=== PATIENT | male | born 1950 | race Caucasian/White ===

== ENCOUNTER → 2019-03-28 | Outpatient (CLI) | payer MEDICARE, OTHER ==
[~2019-03-28] MED LIST: ACET325; ACET500 PO; ASCO500 PO; ASPI81CH; Aspir 8181 MG PO; Aspirin EC81 MG PO; CALCA400CH PO; CALCA500CH; CALCIT950; CALCITRATE200 MG PO; CITA20 PO; Celexa40 MG PO; Citalopram HBr20 MG PO; Colace100 MG PO; Complex B-1001 EACH PO; ERGO50000; Ferosul325 MG PO; Flomax0.4 MG; GABA300; GABA600 PO; GLIP5; GLIP5ER PO; Glucophage1000 MG PO; Glucosamine H1500 MG PO; IBUP600 PO; MELO7.5; MSM Glucosamin1 EACH PO; Mobic15 MG PO; NABU750 PO; Natural Vita400 UNIT PO; Norco 5-325 Ta1 EACH PO; OXYACE5T PO; OXYC5 PO; PRAV20 PO; Prinivil10 MG; Prinivil10 MG PO; TOCO400; TOCO400 PO; TRAM50 PO; TUMS200 MG PO; VITAMIN B125000 MCG PO; VITAMIN C500 M1 PO; XARELTO10 MG PO; XARELTO20 MG PO
== END | disposition home or self-care (01) ==
LOC: PLD 11:50 → LAB SHORT 11:50
DX: C44.622 Squamous cell carcinoma of skin of right upper limb, including shoulder (principal); D04.22 Carcinoma in situ of skin of left ear and external auricular canal
CPT/HCPCS: 88305

== ENCOUNTER → 2019-04-24 | Outpatient (CLI) | payer MEDICARE, OTHER | END | disposition home or self-care (01) | LOC: LAB SHORT 14:11 → PLD 14:11 | DX: C44.622 Squamous cell carcinoma of skin of right upper limb, including shoulder (principal) | CPT/HCPCS: 88305 ==

== ENCOUNTER → 2019-09-04 | Outpatient (CLI) | payer MEDICARE, OTHER | LOC: LAB SRC 07:50 → LAB SHORT 07:50 | DX: E11.42 Type 2 diabetes mellitus with diabetic polyneuropathy (principal); E78.2 Mixed hyperlipidemia; I10 Essential (primary) hypertension | CPT/HCPCS: 82043 ==

== ENCOUNTER → 2020-02-19 | Outpatient (CLI) | payer MEDICARE, OTHER ==
[2020-02-19 11:49] LABS: Hematocrit 40.5 % (37.0-53.0); Hemoglobin 12.4 g/dL (13.5-17.5); Mean Corpuscular HGB 31.9 pg (26.0-34.0); Mean Corpuscular HGB Conc 30.6 g/dL (31.5-36.5); Mean Corpuscular Volume 104 fL (80-100); Mean Platelet Volume 9.9 fL (9.1-12.4); Platelet Count 103 K/mm3 (150-400); RDW Coefficient Variation 15.9 % (11.7-14.2); RDW Standard Deviation 60.4 fL (35.1-46.3); Red Blood Cell Count 3.89 M/mm3 (4.30-5.90)
[2020-02-19 11:58] LABS: White Blood Cell Count 79.08 K/mm3 (4.00-11.30)
[2020-02-19 12:01] LABS: Alanine Aminotransfer (ALT/SGP 22 U/L (12-78); Albumin, Blood 4.1 g/dL (3.4-5.0); Albumin/Globulin Ratio 1.6 (0.8-1.8); Alk Phos 74 U/L (50-136); Anion Gap 5 mmol/L (6-16); Aspartate Aminotrans (AST/SGOT 18 U/L (12-37); Bilirubin, Total 0.6 mg/dL (0.1-1.0); Blood Urea Nitrogen 20 mg/dL (8-24); CO2, Blood 32 mmol/L (21-32); Calcium, Blood 9.4 mg/dL (8.5-10.1); Chloride, Blood 106 mmol/L (98-108); Creatinine, Blood 0.95 mg/dL (0.60-1.20); Globulin, Blood 2.6 g/dL (2.2-4.0); Glomerular Filtration Rate >60 (60-); Glucose, Blood 117 mg/dL (70-99); Potassium, Blood 4.5 mmol/L (3.5-5.5); Sodium, Blood 143 mmol/L (136-145); Total Protein, Blood 6.7 g/dL (6.4-8.2)
[2020-02-19 13:11] LABS: BASOPHILS ABSOLUTE MAN 0.79 K/mm3 (0.00-0.23); BASOPHILS PERCENT MAN 1 % (0-2); EOSINOPHILS ABSOLUTE MAN 2.37 K/mm3 (0.00-0.68); EOSINOPHILS PERCENT MAN 3 % (0-6); LYMPHOCYTES ABSOLUTE MAN 14.23 K/mm3 (0.84-5.20); LYMPHOCYTES PERCENT MAN 18 % (21-46); MONOCYTES ABSOLUTE MAN 3.16 K/mm3 (0.16-1.47); MONOCYTES PERCENT MAN 4 % (4-13); NEUTROPHILS ABSOLUTE MAN 58.51 K/mm3 (1.96-9.15); SEG NEUTROPHILS PERCENT MAN 74 % (41-73); TOTAL CELLS COUNTED 100
== END | disposition home or self-care (01) ==
LOC: LAB SHORT 11:44 → LAB 11:44
PROVIDERS: Internal Medicine Hematology & Oncology
DX: C91.10 Chronic lymphocytic leukemia of B-cell type not having achieved remission (principal)
CPT/HCPCS: 80053; 85025

== ENCOUNTER → 2020-07-08 | Outpatient (CLI) | payer MEDICARE, OTHER ==
[~2020-07-08] MED LIST changes: +PREG75; -TUMS200 MG PO; +TUMS500 MG PO
== END ==
LOC: PLD 13:34 → LAB SHORT 13:34
DX: L60.2 Onychogryphosis (principal)
CPT/HCPCS: 88305; 88312

== ENCOUNTER 2022-02-09 07:55 | Day surgery (SDC) | payer MEDICARE, OTHER ==
[~2022-02-09 07:55] MED LIST changes: +DONA750 MG PO; +GABA300 PO; +Imdur30 MG PO
--- NOTE | 2022-02-09 10:31 | NUR ---
PATIENT RETURNED FROM [facility]. TR BAND TO THE RIGHT RADIAL WITH 10 ML OF AIR IN THE BAND. PATINET PLACED ON THE MONITOR AND CALL LIGHT IN REACH. VVS. NO PAIN NOTED. BROUGHT TO THE BEDSIDE, DR. TAYLOR CAME TOT HE BEDSIDE AND SPOKE TO THE BOTH. PATIENT WILL NEED SURGICAL CONSULT.
--- NOTE | 2022-02-09 10:48 | NUR ---
PATIENT UP AND DRESSED WITH HELP FROM THE . REVIEWED DISCHARGE INSTRUCTIONS WITH THE PAITENT AND . TR BAND REMOVED AND SITE CLEANED. CLOTH DOT PLACED AND WHITE BOARD PLACED BACK ON THE RIGHT WRIST. PAITENT HAS NO FURTHER QUESTIONS. DISHCARGED HOME WITH . WITH FOLLOW UP APPOINTMENT.
--- NOTE | 2022-02-09 12:07 | NUR ---
1155 BEGAN RELEASING AIR FROM THE TR BAND.
--- NOTE | 2022-02-09 13:00 | NUR ---
DEFLATED RIGHT TR BAND REMOVED AND POLYMEM PLACED OVER RIGHT RADIAL SITE WITH WRIST BOARD IN PLACE; NO PULSATILE BLEEDING, NO HEMATOMA.
--- NOTE | 2022-02-09 13:10 | NUR ---
PATIENT DRESSED. REVIEWED DISCHARGE INSTRUCTIONS WITH PATIENT AND AND SIGNATURES OBTAINED. ALL BELONGINGS RETAINED BY PATIENT. DISCHARGED HOME WITH . CONSULTS WITH CARDIAC SURGEON IN [place] REFERRAL SENT. WHEELCHAIR TO CAR.
== END 2022-02-09 14:34 | disposition home or self-care (01) ==
LOC: MHTC 07:55
DX: I25.118 Atherosclerotic heart disease of native coronary artery with other forms of angina pectoris (principal); I10 Essential (primary) hypertension; E78.5 Hyperlipidemia, unspecified; E11.9 Type 2 diabetes mellitus without complications; C91.10 Chronic lymphocytic leukemia of B-cell type not having achieved remission; G20 Parkinson's disease; E66.9 Obesity, unspecified; I45.10 Unspecified right bundle-branch block; Z79.82 Long term (current) use of aspirin; Z79.84 Long term (current) use of oral hypoglycemic drugs; Z68.31 Body mass index [BMI] 31.0-31.9, adult
CPT/HCPCS: 93454; 99152; 99153; C1769; C1887; C1894; J1644; J2250; J3010; J7030; J7050; Q9967

== ENCOUNTER → 2022-05-02 | Outpatient (CLI) | payer MEDICARE, OTHER | END | disposition home or self-care (01) | LOC: LAB SHORT 10:48 → PLD 10:48 | DX: C44.42 Squamous cell carcinoma of skin of scalp and neck (principal) | CPT/HCPCS: 88305 ==

== ENCOUNTER → 2022-08-17 | Outpatient (CLI) | payer MEDICARE, OTHER | END | disposition home or self-care (01) | LOC: LAB SHORT 12:08 → PLD 12:08 | DX: D04.22 Carcinoma in situ of skin of left ear and external auricular canal (principal); L82.1 Other seborrheic keratosis; L57.0 Actinic keratosis; L85.8 Other specified epidermal thickening | CPT/HCPCS: 88305 ==

== ENCOUNTER 2023-01-17 11:42 | Day surgery (SDC) | payer MEDICARE, OTHER ==
[~2023-01-17] VITALS: Ht 182.9 cm; Wt 112.0 kg
[2023-01-17] MEDS ORDERED: CARB25 (12:07)
[2023-01-17] MEDS ORDERED: DULO60 (12:07)
[2023-01-17] MEDS ORDERED: METF500 (12:07)
[2023-01-17] MEDS ORDERED: ATEN25 (12:07)
[2023-01-17] MEDS ORDERED: DICLOFENAC SOD100 GM (12:07)
== END 2023-01-17 14:30 | disposition home or self-care (01) ==
LOC: ORSCSDS 11:42
PROVIDERS: Internal Medicine Gastroenterology
PROC: 0DB78ZX Excision of Stomach, Pylorus, Via Natural or Artificial Opening Endoscopic, Diagnostic (ICD-10-PCS; principal; 2023-01-17 13:00)
PROC: 0DBN8ZX Excision of Sigmoid Colon, Via Natural or Artificial Opening Endoscopic, Diagnostic (ICD-10-PCS; principal; 2023-01-17 13:00)
PROC: 0DB98ZX Excision of Duodenum, Via Natural or Artificial Opening Endoscopic, Diagnostic (ICD-10-PCS; principal; 2023-01-17 13:00)
DX: D50.9 Iron deficiency anemia, unspecified (principal); K21.9 Gastro-esophageal reflux disease without esophagitis; D12.5 Benign neoplasm of sigmoid colon; Q40.8 Other specified congenital malformations of upper alimentary tract; K64.4 Residual hemorrhoidal skin tags; E11.9 Type 2 diabetes mellitus without complications; E11.42 Type 2 diabetes mellitus with diabetic polyneuropathy; Z79.899 Other long term (current) drug therapy; Z79.84 Long term (current) use of oral hypoglycemic drugs
CPT/HCPCS: 82947; 88305; 88342; J0330; J0461; J2405; J2704; J7120; Q9968

== ENCOUNTER → 2023-01-30 | Outpatient (CLI) | payer MEDICARE ==
[~2023-01-30] MED LIST changes: +ATEN25; +CARB25; +DICLOFENAC SOD100 GM; +DULO60; +METF500
== END | disposition home or self-care (01) ==
LOC: LAB SHORT 07:10 → PLD 07:10
DX: C44.40 Unspecified malignant neoplasm of skin of scalp and neck (principal); C91.10 Chronic lymphocytic leukemia of B-cell type not having achieved remission; Z85.828 Personal history of other malignant neoplasm of skin
CPT/HCPCS: 88173

== ENCOUNTER → 2023-02-22 | Outpatient (CLI) | payer MEDICARE, OTHER ==
[2023-02-22 19:44] LABS: Albumin, Blood 3.4 g/dL (3.4-5.0); Albumin/Globulin Ratio 1.3 (0.8-1.8); Bilirubin, Direct 0.1 mg/dL (0.0-0.3); Bilirubin, Indirect 0.3 mg/dL (0.1-0.7); Bilirubin, Total 0.4 mg/dL (0.1-1.0); Bun/Creatinine Ratio 27.2 (12.0-20.0); Calcium, Blood 9.1 mg/dL (8.5-10.1); Creatinine, Blood 0.66 mg/dL (0.60-1.20); Globulin, Blood 2.6 g/dL (2.2-4.0); Phosphorus, Blood 3.5 mg/dL (2.5-4.9); Potassium, Blood 4.8 mmol/L (3.5-5.5)
[2023-02-23 10:53] LABS: Thyroid Stimulating Hormone 0.243 uIU/mL (0.360-4.800)
== END | disposition home or self-care (01) ==
LOC: LAB SHORT 12:11
PROVIDERS: Internal Medicine Hematology & Oncology
DX: C91.10 Chronic lymphocytic leukemia of B-cell type not having achieved remission (principal); R53.83 Other fatigue
CPT/HCPCS: 80053; 82248; 84100; 84443

== ENCOUNTER 2023-03-17 12:24 | Emergency (ER) | payer MEDICARE ==
[~2023-03-17] VITALS: Ht 182.9 cm; Wt 115.2 kg
[~2023-03-17 12:24] MED LIST changes: -PREG75; +PREG75 PO
[2023-03-17] MEDS ORDERED: KEYTRUDA100 MG/41 IV (12:48)
[2023-03-17] MEDS ORDERED: OMEP20ER PO (12:48)
[2023-03-17 14:54] VITALS: BP 115/53
== END 2023-03-17 15:14 | disposition home or self-care (01) ==
LOC: ER 12:24
DX: S01.01XA Laceration without foreign body of scalp, initial encounter (principal); S70.01XA Contusion of right hip, initial encounter; W01.10XA Fall on same level from slipping, tripping and stumbling with subsequent striking against unspecified object, initial encounter; Z79.899 Other long term (current) drug therapy; Z79.82 Long term (current) use of aspirin; Z79.84 Long term (current) use of oral hypoglycemic drugs; I10 Essential (primary) hypertension; E11.9 Type 2 diabetes mellitus without complications
CPT/HCPCS: 12002; 70450; 72125; 73502; 90471; 90714; 99284-25; A9270

== ENCOUNTER → 2023-04-06 | Outpatient (CLI) | payer MEDICARE ==
[~2023-04-06] MED LIST changes: +KEYTRUDA100 MG/41 IV; +OMEP20ER PO
[2023-04-06 11:20] LABS: Albumin, Blood 3.5 g/dL (3.4-5.0); Albumin/Globulin Ratio 1.5 (0.8-1.8); Bilirubin, Total 0.6 mg/dL (0.1-1.0); Bun/Creatinine Ratio 24.3 (12.0-20.0); Calcium, Blood 9.5 mg/dL (8.5-10.1); Creatinine, Blood 0.66 mg/dL (0.60-1.20); Globulin, Blood 2.4 g/dL (2.2-4.0); Magnesium, Blood 1.6 mg/dL (1.6-2.4); Phosphorus, Blood 3.6 mg/dL (2.5-4.9); Potassium, Blood 4.6 mmol/L (3.5-5.5); Total Protein, Blood 5.9 g/dL (6.4-8.2)
== END | disposition home or self-care (01) ==
LOC: LAB SHORT 11:02 → LAB 11:02
PROVIDERS: Internal Medicine Hematology & Oncology
DX: C91.10 Chronic lymphocytic leukemia of B-cell type not having achieved remission (principal); C44.41 Basal cell carcinoma of skin of scalp and neck
CPT/HCPCS: 80053; 83735; 84100

== ENCOUNTER → 2023-04-13 | Outpatient (CLI) | payer MEDICARE ==
[2023-04-13 11:21] LABS: Albumin, Blood 3.6 g/dL (3.4-5.0); Albumin/Globulin Ratio 1.4 (0.8-1.8); Bilirubin, Total 0.7 mg/dL (0.1-1.0); Bun/Creatinine Ratio 27.7 (12.0-20.0); Calcium, Blood 9.7 mg/dL (8.5-10.1); Creatinine, Blood 0.65 mg/dL (0.60-1.20); Globulin, Blood 2.5 g/dL (2.2-4.0); Magnesium, Blood 1.5 mg/dL (1.6-2.4); Phosphorus, Blood 3.3 mg/dL (2.5-4.9); Potassium, Blood 4.8 mmol/L (3.5-5.5); Total Protein, Blood 6.1 g/dL (6.4-8.2)
== END | disposition home or self-care (01) ==
LOC: LAB SHORT 09:20 → LAB 09:20
PROVIDERS: Internal Medicine Hematology & Oncology
DX: C91.10 Chronic lymphocytic leukemia of B-cell type not having achieved remission (principal); C44.42 Squamous cell carcinoma of skin of scalp and neck
CPT/HCPCS: 80053; 83735; 84100

== ENCOUNTER 2023-04-26 11:23 | Day surgery (SDC) | payer MEDICARE, OTHER | END 2023-04-26 22:47 | disposition home or self-care (01) | LOC: WOUND 11:23 | DX: C44.229 Squamous cell carcinoma of skin of left ear and external auricular canal (principal); C91.10 Chronic lymphocytic leukemia of B-cell type not having achieved remission; G20 Parkinson's disease | CPT/HCPCS: A9270; G0463 ==

== ENCOUNTER 2023-05-01 01:55 | Day surgery (SDC) | payer MEDICARE, OTHER | END 2023-05-01 23:00 | disposition home or self-care (01) | LOC: WOUND 01:55 | DX: C44.229 Squamous cell carcinoma of skin of left ear and external auricular canal (principal); S01.302D Unspecified open wound of left ear, subsequent encounter; G20 Parkinson's disease; I10 Essential (primary) hypertension; E11.21 Type 2 diabetes mellitus with diabetic nephropathy; X58.XXXD Exposure to other specified factors, subsequent encounter | CPT/HCPCS: A9270; G0463 ==

== ENCOUNTER → 2023-05-02 | Outpatient (CLI) | payer MEDICARE, OTHER | END | disposition home or self-care (01) | LOC: LAB SHORT 07:29 → PLD 07:29 | DX: D22.4 Melanocytic nevi of scalp and neck (principal); L30.8 Other specified dermatitis | CPT/HCPCS: 88305; 88312 ==